=== PATIENT | male | born 1990 | race Caucasian/White ===

== ENCOUNTER 2016-09-07 01:50 | Emergency (ER) | payer SELFPAY ==
[~2016-09-07] VITALS: Ht 175.3 cm; Wt 81.8 kg
[2016-09-07] MEDS ORDERED: OLAN10TA3 PO (02:01)
[2016-09-07 02:34] LABS: BASOPHILS % (AUTO) 0.4 % (0.0-2.0); EOSINOPHILS % (AUTO) 1.9 % (1.0-6.0); HEMATOCRIT 42.6 % (41-53); HEMOGLOBIN 13.9 g/dL (13.5-17.5); LYMPHOCYTES # (AUTO) 1.5 K/uL (1.0-4.8); LYMPHOCYTES % (AUTO) 18.2 % (22.0-44.0); MEAN CORPUSCULAR HEMOGLOBIN 26.9 pg (26.0-34.0); MEAN CORPUSCULAR HGB CONC 32.6 G/dL (31.0-37.0); MEAN CORPUSCULAR VOLUME 83 fL (80-100); MONOCYTES # (AUTO) 0.8 K/uL (0.1-1.0); MONOCYTES % (AUTO) 9.3 % (2.0-9.0); NEUTROPHILS # (AUTO) 5.8 K/uL (1.8-7.7); NEUTROPHILS % (AUTO) 70.2 % (40.0-70.0); PLATELET COUNT (AUTO) 334 K/uL (150-450); RED BLOOD CELL COUNT(AUTO) 5.16 MIL/uL (4.50-5.90); RED CELL DISTRIBUTION WIDTH 14.9 % (11.5-14.5); WHITE BLOOD COUNT (AUTO) 8.2 K/uL (4.5-11.0)
[2016-09-07 02:35] LABS: ANION GAP 10 mmol/L (8-16); CARBON DIOXIDE 27 mmol/L (22-29); CHLORIDE 101 mmol/L (98-107); CREATININE 1.01 mg/dL (0.60-1.30); GLOMERULAR FILTR. RATE CALC > 60 mL/min (>60); POTASSIUM 3.7 mmol/L (3.5-5.1); SODIUM SERUM 138 mmol/L (136-145); UREA NITROGEN, BLOOD 15 mg/dL (7-18)
[2016-09-07 02:41] LABS: ALANINE AMINOTRANSFERASE 46 U/L (12-78); ALBUMIN 4.2 g/dL (3.4-5.0); ASPARTATE AMINOTRANSFERASE 21 U/L (15-37); TOTAL PROTEIN, SERUM 8.2 g/dL (6.4-8.2)
[2016-09-07] MEDS ORDERED: LORazepam 2 MG TABLET PO ONE (03:00)
[2016-09-07] MEDS ORDERED: OLANZapine 5 MG TABLET PO ONE (03:00)
[2016-09-07 03:09] VITALS: BP 132/84
== END 2016-09-07 03:12 | disposition home or self-care (01) ==
LOC: EMS 01:53
DX: F25.9 Schizoaffective disorder, unspecified (principal); F32.9 Major depressive disorder, single episode, unspecified; F15.90 Other stimulant use, unspecified, uncomplicated
CPT/HCPCS: 36415; 80053; 80307; 85025; 99284; G0480

== ENCOUNTER 2017-02-09 09:49 | Emergency (ER) | payer OTHER ==
[~2017-02-09] VITALS: Ht 175.3 cm; Wt 83.0 kg
[~2017-02-09 09:49] MED LIST: OLAN10TA3 PO
[2017-02-09 11:01] VITALS: BP 135/91
== END 2017-02-09 11:02 | disposition home or self-care (01) ==
LOC: EMS 09:49
DX: B35.6 Tinea cruris (principal); R03.0 Elevated blood-pressure reading, without diagnosis of hypertension
CPT/HCPCS: 99283

== ENCOUNTER 2017-02-24 09:40 | Emergency (ER) | payer OTHER ==
[~2017-02-24] VITALS: Ht 175.3 cm; Wt 84.1 kg
[2017-02-24 09:45] VITALS: BP 132/90
[2017-02-24] MEDS ORDERED: NYST30CR9 TP (09:47)
== END 2017-02-24 11:30 | disposition home or self-care (01) ==
LOC: EMS 09:42
DX: Z76.0 Encounter for issue of repeat prescription (principal); F20.9 Schizophrenia, unspecified; F32.9 Major depressive disorder, single episode, unspecified
CPT/HCPCS: 99283

== ENCOUNTER 2018-11-06 12:30 | Emergency (ER) | payer OTHER ==
[~2018-11-06] VITALS: Ht 172.7 cm; Wt 86.4 kg
[~2018-11-06 12:30] MED LIST changes: +NYST30CR9 TP
[2018-11-06] MEDS ORDERED: HYD50 PO (12:43)
[2018-11-06 14:56] VITALS: BP 132/81
== END 2018-11-06 14:57 | disposition home or self-care (01) ==
LOC: EMS 12:30
DX: R76.11 Nonspecific reaction to tuberculin skin test without active tuberculosis (principal); F32.9 Major depressive disorder, single episode, unspecified; F20.9 Schizophrenia, unspecified; F15.90 Other stimulant use, unspecified, uncomplicated

== ENCOUNTER 2019-02-04 08:42 | Emergency (ER) | payer OTHER ==
[~2019-02-04] VITALS: Ht 175.3 cm; Wt 90.9 kg
[~2019-02-04 08:42] MED LIST changes: +HYD50 PO; -NYST30CR9 TP
[2019-02-04 09:47] VITALS: BP 137/85
== END 2019-02-04 09:54 | disposition home or self-care (01) ==
LOC: EMS 08:43
DX: Z11.1 Encounter for screening for respiratory tuberculosis (principal); F15.10 Other stimulant abuse, uncomplicated; F17.210 Nicotine dependence, cigarettes, uncomplicated; Z79.899 Other long term (current) drug therapy; F20.9 Schizophrenia, unspecified; F32.9 Major depressive disorder, single episode, unspecified
CPT/HCPCS: 99406

== ENCOUNTER 2020-06-27 09:17 | Emergency (ER) | payer OTHER ==
[~2020-06-27] VITALS: Ht 175.3 cm; Wt 93.2 kg
[2020-06-27 09:29] VITALS: BP 131/61
[2020-06-27 10:51] LABS: BASOPHILS % (AUTO) 0.5 % (0.0-2.0); EOSINOPHILS % (AUTO) 2.6 % (1.0-6.0); HEMATOCRIT 45.3 % (41-53); LYMPHOCYTES # (AUTO) 1.7 K/uL (1.0-4.8); LYMPHOCYTES % (AUTO) 17.8 % (22.0-44.0); MEAN CORPUSCULAR HEMOGLOBIN 26.8 pg (26.0-34.0); MEAN CORPUSCULAR HGB CONC 33.1 G/dL (31.0-37.0); MEAN CORPUSCULAR VOLUME 81 fL (80-100); MONOCYTES # (AUTO) 0.6 K/uL (0.1-1.0); MONOCYTES % (AUTO) 5.9 % (2.0-9.0); NEUTROPHILS # (AUTO) 6.9 K/uL (1.8-7.7); NEUTROPHILS % (AUTO) 73.2 % (40.0-70.0); PLATELET COUNT (AUTO) 357 K/uL (150-450); RED BLOOD CELL COUNT(AUTO) 5.59 MIL/uL (4.50-5.90)
[2020-06-27 10:54] LABS: APPEARANCE,URINE CLEAR (CLEAR); BILIRUBIN,URINE NEGATIVE (NEGATIVE); GLUCOSE, URINE (UA) NEGATIVE (NEGATIVE); KETONES,URINE NEGATIVE (NEGATIVE); LEUKOCYTE ESTERASE ,URINE NEGATIVE (NEGATIVE); NITRATE,URINE NEGATIVE (NEGATIVE); OCCULT BLOOD,URINE NEGATIVE (NEGATIVE); PROTEIN,URINE NEGATIVE (NEGATIVE)
[2020-06-27 10:57] LABS: ANION GAP 9 mmol/L (8-16); CALCIUM, TOTAL 8.9 mg/dL (8.8-10.5); CARBON DIOXIDE 28 mmol/L (22-29); CHLORIDE 103 mmol/L (98-107); CREATININE 0.79 mg/dL (0.60-1.30); GLOMERULAR FILTR. RATE CALC > 60 mL/min (>60); GLUCOSE,RANDOM 97 mg/dL (70-110); SODIUM SERUM 140 mmol/L (136-145); UREA NITROGEN, BLOOD 8 mg/dL (7-18)
[2020-06-27 10:59] LABS: AMPHET/METH SCREEN,URINE POSITIVE (NEGATIVE); BARBITURATE SCREEN, URINE NEGATIVE (NEGATIVE); BENZODIAZEPINES SCREEN,URINE NEGATIVE (NEGATIVE); CANNABINOID SCREEN,URINE POSITIVE (NEGATIVE); COCAINE SCREEN,URINE NEGATIVE (NEGATIVE); METHADONE SCREEN, URINE NEGATIVE (NEGATIVE); OPIATE SCREEN,URINE NEGATIVE (NEGATIVE)
[2020-06-27 11:03] LABS: ALANINE AMINOTRANSFERASE 35 U/L (12-78); ALBUMIN 3.6 g/dL (3.4-5.0); ALKALINE PHOSPHATASE 102 U/L (46-116); ASPARTATE AMINOTRANSFERASE 17 U/L (15-37); BILIRUBIN,TOTAL 0.5 mg/dL (0.1-1.0); TOTAL PROTEIN, SERUM 7.8 g/dL (6.4-8.2)
[2020-06-27 11:05] LABS: PHENCYCLIDINE SCREEN,URINE NEGATIVE (NEGATIVE)
== END 2020-06-27 12:45 | disposition home or self-care (01) ==
LOC: EMS 09:17
DX: R44.0 Auditory hallucinations (principal); G47.00 Insomnia, unspecified; F19.10 Other psychoactive substance abuse, uncomplicated; F32.9 Major depressive disorder, single episode, unspecified; F17.210 Nicotine dependence, cigarettes, uncomplicated; F12.90 Cannabis use, unspecified, uncomplicated; Z88.6 Allergy status to analgesic agent; Z88.8 Allergy status to other drugs, medicaments and biological substances
CPT/HCPCS: 36415; 80053; 80307; 81003; 85025; 99284; G0480

== ENCOUNTER 2024-11-23 09:54 | Inpatient (IN) | payer MEDICAID, OTHER ==
[~2024-11-23] VITALS: Ht 175.3 cm; Wt 80.7 kg
[~2024-11-23 09:54] MED LIST changes: -HYD50 PO; +HYDR-5256 PO; -OLAN10TA3 PO; +OLAN10TA74 PO
[2024-11-23 10:16] LABS: PLATELET COUNT (AUTO) 293 K/uL (150-450); RED BLOOD CELL COUNT(AUTO) 5.64 MIL/uL (4.50-5.90); RED CELL DISTRIBUTION WIDTH 14.3 % (11.5-14.5); WHITE BLOOD COUNT (AUTO) 9.1 K/uL (4.5-11.0)
[2024-11-23 10:25] LABS: CALCIUM, TOTAL 9.0 mg/dL (8.8-10.5); CREATININE 0.67 mg/dL (0.60-1.30); GLOMERULAR FILTR. RATE CALC > 60 mL/min (>60); GLUCOSE,RANDOM 112 mg/dL (70-110); SODIUM SERUM 139 mmol/L (136-145); UREA NITROGEN, BLOOD 11 mg/dL (7-18)
[2024-11-23 10:29] LABS: COVID AG,FIA SOURCE NPH
[2024-11-23 11:00] LABS: SARS-COV2 (COVID) ANTIGEN,FIA Negative (Negative)
[2024-11-23 12:42] LABS: APPEARANCE,URINE CLEAR (CLEAR); GLUCOSE, URINE (UA) NEGATIVE (NEGATIVE); LEUKOCYTE ESTERASE ,URINE NEGATIVE (NEGATIVE); NITRATE,URINE NEGATIVE (NEGATIVE); OCCULT BLOOD,URINE NEGATIVE (NEGATIVE); PH,URINE DRUG SCREEN 6.5 (5.0-8.0); SPECIFIC GRAVITIY, URINE 1.009 (1.003-1.030)
[2024-11-23 12:47] LABS: ALCOHOL, URINE DRUG SCREEN NEGATIVE (NEGATIVE); AMPHET/METH SCREEN,URINE POSITIVE (NEGATIVE); BARBITURATE SCREEN, URINE NEGATIVE (NEGATIVE); CANNABINOID SCREEN,URINE POSITIVE (NEGATIVE); COCAINE SCREEN,URINE NEGATIVE (NEGATIVE); METHADONE SCREEN, URINE NEGATIVE (NEGATIVE)
[2024-11-23 19:28] VITALS: BP 128/72; PULSE 80; RESP 18; TEMP 98.5; O2SAT 98
[2024-11-24 08:28] VITALS: BP 121/91; PULSE 91; RESP 18; TEMP 97.6; O2SAT 100
[2024-11-24] MEDS ORDERED: NICOTINE POLACRILEX 4 MG LOZENGE PO PRN (09:45)
[2024-11-24] MEDS ORDERED: LOPERAMIDE HCL 2 MG CAPSULE PO PRN (09:45)
[2024-11-24] MEDS ORDERED: MAG HYDROX/ALUMINUM HYD/SIMETH ES 30 ML SUSPENSION UDCUP PO PRN (09:45)
[2024-11-24] MEDS ORDERED: PETROLATUM,WHITE 28 GM JELLY TP PRN (09:45)
[2024-11-24] MEDS ORDERED: BENZOCAINE/MENTHOL [CEPACOL] LOZENGE PO PRN (09:45)
[2024-11-24] MEDS ORDERED: ALBUTEROL SULFATE HFA 90 MCG/PUFF 8 GM INHALER IH PRN (09:45)
[2024-11-24] MEDS ORDERED: OMEPRAZOLE 20 MG CAPSULE PO PRN (09:45)
[2024-11-24] MEDS ORDERED: MAGNESIUM HYDROXIDE SUSPENSION 30 ML UDCUP PO PRN (09:45)
[2024-11-24] MEDS ORDERED: BACITRACIN 28 GM OINTMENT TP PRN (09:45)
[2024-11-24] MEDS ORDERED: ONDANSETRON 4 MG TABLET PO PRN (09:45)
[2024-11-24] MEDS ORDERED: LORazepam 2 MG/ML VIAL ONE (17:04)
[2024-11-24] MEDS ORDERED: FLUT16H NASAL (17:31)
[2024-11-24] MEDS ORDERED: OLAN15TA98 PO (17:31)
[2024-11-24] MEDS ORDERED: FEXO-236 PO (17:31)
[2024-11-24] MEDS: LORazepam 2 MG/ML VIAL IM ONE (17:35)
[2024-11-24 20:05] VITALS: BP 124/80; PULSE 93; RESP 18; TEMP 98; O2SAT 100
[2024-11-25 08:03] VITALS: BP 121/88; PULSE 94; RESP 17; TEMP 97.6; O2SAT 99
[2024-11-25 15:40] VITALS: BP 112/77; PULSE 88; RESP 18; TEMP 97.6; O2SAT 99
[2024-11-25 21:00] VITALS: BP 120/99; PULSE 110; RESP 17; TEMP 97.5; O2SAT 98
[2024-11-25] MEDS: ZOLPIDEM TARTRATE 10 MG TABLET PO PRN (22:47)
[2024-11-26 08:12] VITALS: BP 107/76; PULSE 85; RESP 17; TEMP 97.9; O2SAT 97
[2024-11-26] MEDS ORDERED: LORazepam 2 MG/ML VIAL ONE (13:15)
[2024-11-26] MEDS: LORazepam 2 MG/ML VIAL IM ONE (13:23)
[2024-11-26 21:30] VITALS: RESP 17
[2024-11-27 08:22] VITALS: BP 120/82; PULSE 93; RESP 17; TEMP 97.5; O2SAT 99
[2024-11-27 20:25] VITALS: BP 127/88; PULSE 99; RESP 18; TEMP 97.7; O2SAT 100
[2024-11-28 09:12] VITALS: BP 120/81; PULSE 98; RESP 18; TEMP 97.6; O2SAT 99
[2024-11-28 20:06] VITALS: BP 135/82; PULSE 100; RESP 18; TEMP 97.7; O2SAT 98
[2024-11-29 08:01] VITALS: BP 140/90; PULSE 99; RESP 18; TEMP 97.2; O2SAT 99
[2024-11-29 20:10] VITALS: BP 135/62; PULSE 85; RESP 18; TEMP 98.1; O2SAT 98
[2024-11-30 08:06] VITALS: BP 131/95; PULSE 96; RESP 18; TEMP 97.4; O2SAT 95
[2024-11-30] MEDS: ACETAMINOPHEN 325 MG TABLET PO PRN (16:15)
[2024-11-30 16:16] VITALS: RESP 17
[2024-11-30 17:23] VITALS: RESP 17
[2024-11-30 20:12] VITALS: BP 122/82; PULSE 80; RESP 17; TEMP 96; O2SAT 97
[2024-12-01 08:39] VITALS: BP 118/77; PULSE 77; RESP 17; TEMP 97.6; O2SAT 97
[2024-12-01 15:57] VITALS: BP 125/82; PULSE 83; RESP 18; TEMP 97.8
[2024-12-01] MEDS: IBUPROFEN 600 MG TABLET PO PRN (16:01)
[2024-12-01 17:01] VITALS: RESP 18
[2024-12-01 20:07] VITALS: BP 134/96; PULSE 89; RESP 17; TEMP 97; O2SAT 97
[2024-12-02 08:04] VITALS: BP 123/81; PULSE 77; RESP 16; TEMP 97.5; O2SAT 97
[2024-12-02 20:01] VITALS: BP 154/94; PULSE 100; RESP 18; TEMP 97.9; O2SAT 99
[2024-12-03 08:07] VITALS: BP 112/85; PULSE 94; RESP 17; TEMP 97.4; O2SAT 98
[2024-12-03] MEDS: CARBAMIDE PEROXIDE 6.5% 15 ML OTIC SOLUTION AU SCH (11:32)
[2024-12-03] MEDS: DOCUSATE SODIUM 100 MG CAPSULE PO PRN (12:52)
[2024-12-03 20:05] VITALS: BP 121/87; PULSE 98; RESP 18; TEMP 97.5; O2SAT 100
[2024-12-04] MEDS ORDERED: HYDR-5256 PO (06:00)
[2024-12-04] MEDS ORDERED: OLAN10TA74 PO (06:00)
[2024-12-04 08:08] VITALS: BP 136/91; PULSE 105; RESP 17; TEMP 97.1; O2SAT 97
== END 2024-12-04 11:50 | disposition home or self-care (01) | DRG 750 ==
LOC: EMS 09:54 → B3A 16:14
PROVIDERS: ADMIT Psychiatry & Neurology Psychiatry; ATTEND Psychiatry & Neurology Psychiatry
PROC: GZHZZZZ Group Psychotherapy (ICD-10-PCS; principal; 2024-11-24)
PROC: GZ52ZZZ Individual Psychotherapy, Cognitive (ICD-10-PCS; 2024-11-25)
DX: F25.0 Schizoaffective disorder, bipolar type (principal); F12.10 Cannabis abuse, uncomplicated; F15.10 Other stimulant abuse, uncomplicated; F41.9 Anxiety disorder, unspecified; G47.00 Insomnia, unspecified; K59.00 Constipation, unspecified; R03.0 Elevated blood-pressure reading, without diagnosis of hypertension; Z20.822 Contact with and (suspected) exposure to COVID-19; Z72.0 Tobacco use; Z88.8 Allergy status to other drugs, medicaments and biological substances
CPT/HCPCS: 80048; 80307; 81003; 85025; G0480; J1200; J2060; J3230

== ENCOUNTER 2025-01-25 22:10 | Inpatient (IN) | payer MEDICAID ==
[~2025-01-25] VITALS: Ht 175.3 cm; Wt 82.2 kg
[2025-01-26 01:22] VITALS: BP 123/84; PULSE 91; RESP 17; TEMP 98.7; O2SAT 98
[2025-01-26 08:15] LABS: PLATELET COUNT (AUTO) 314 K/uL (150-450); RED BLOOD CELL COUNT(AUTO) 5.31 MIL/uL (4.50-5.90); RED CELL DISTRIBUTION WIDTH 14.2 % (11.5-14.5); WHITE BLOOD COUNT (AUTO) 7.5 K/uL (4.5-11.0)
[2025-01-26 08:22] VITALS: BP 109/71; PULSE 65; RESP 16; TEMP 98.1; O2SAT 98
[2025-01-26 08:53] LABS: ASPARTATE AMINOTRANSFERASE 18 U/L (15-37); CALCIUM, TOTAL 8.7 mg/dL (8.8-10.5); CHOL/HDL RATIO 2.9 (4.2-7.3); CREATININE 0.53 mg/dL (0.60-1.30); GLOMERULAR FILTR. RATE CALC > 60 mL/min (>60); LDL CHOL (CALC.) 83 mg/dL (0-130); SODIUM SERUM 138 mmol/L (136-145); TOTAL PROTEIN, SERUM 7.0 g/dL (6.4-8.2); UREA NITROGEN, BLOOD 10 mg/dL (7-18)
[2025-01-26 08:59] LABS: GLUCOSE,RANDOM 92 mg/dL (70-110)
[2025-01-26] MEDS ORDERED: PETROLATUM,WHITE 28 GM JELLY TP PRN (18:45)
[2025-01-26] MEDS ORDERED: ONDANSETRON 4 MG TABLET PO PRN (18:45)
[2025-01-26] MEDS ORDERED: MAG HYDROX/ALUMINUM HYD/SIMETH ES 30 ML SUSPENSION UDCUP PO PRN (18:45)
[2025-01-26] MEDS ORDERED: LOPERAMIDE HCL 2 MG CAPSULE PO PRN (18:45)
[2025-01-26] MEDS ORDERED: GuaiFENesin/D-METHORPHAN [SUGAR-FREE] 200-20MG/10 ML SYRUP UDCUP PO PRN (18:45)
[2025-01-26] MEDS ORDERED: DOCUSATE SODIUM 100 MG CAPSULE PO PRN (18:45)
[2025-01-26] MEDS ORDERED: NICOTINE 14 MG/24 HOUR PATCH TD PRN (18:45)
[2025-01-26] MEDS ORDERED: IBUPROFEN 400 MG TABLET PO PRN (18:45)
[2025-01-26] MEDS ORDERED: MAGNESIUM HYDROXIDE SUSPENSION 30 ML UDCUP PO PRN (18:45)
[2025-01-26] MEDS ORDERED: ALBUTEROL SULFATE HFA 90 MCG/PUFF 8 GM INHALER IH PRN (18:45)
[2025-01-27 08:31] LABS: PLATELET COUNT (AUTO) 364 K/uL (150-450); RED BLOOD CELL COUNT(AUTO) 5.69 MIL/uL (4.50-5.90); RED CELL DISTRIBUTION WIDTH 14.1 % (11.5-14.5); WHITE BLOOD COUNT (AUTO) 9.4 K/uL (4.5-11.0)
[2025-01-27 08:55] LABS: ASPARTATE AMINOTRANSFERASE 12 U/L (15-37); CALCIUM, TOTAL 8.8 mg/dL (8.8-10.5); CREATININE 0.58 mg/dL (0.60-1.30); GLOMERULAR FILTR. RATE CALC > 60 mL/min (>60); GLUCOSE,RANDOM 130 mg/dL (70-110); SODIUM SERUM 136 mmol/L (136-145); TOTAL PROTEIN, SERUM 7.6 g/dL (6.4-8.2); UREA NITROGEN, BLOOD 12 mg/dL (7-18)
[2025-01-27 09:04] LABS: APPEARANCE,URINE TURBID (CLEAR); GLUCOSE, URINE (UA) NEGATIVE (NEGATIVE); LEUKOCYTE ESTERASE ,URINE NEGATIVE (NEGATIVE); NITRATE,URINE NEGATIVE (NEGATIVE); OCCULT BLOOD,URINE NEGATIVE (NEGATIVE); PH,URINE DRUG SCREEN 7.0 (5.0-8.0); SPECIFIC GRAVITIY, URINE 1.020 (1.003-1.030)
[2025-01-27 09:35] LABS: ALCOHOL, URINE DRUG SCREEN NEGATIVE (NEGATIVE); AMPHET/METH SCREEN,URINE POSITIVE (NEGATIVE); BARBITURATE SCREEN, URINE NEGATIVE (NEGATIVE); CANNABINOID SCREEN,URINE POSITIVE (NEGATIVE); COCAINE SCREEN,URINE NEGATIVE (NEGATIVE); METHADONE SCREEN, URINE NEGATIVE (NEGATIVE)
[2025-01-27 10:08] LABS: CHOL/HDL RATIO 2.9 (4.2-7.3); LDL CHOL (CALC.) 93.0 mg/dL (0-130)
[2025-01-27 19:38] VITALS: RESP 18
[2025-01-27 20:35] VITALS: BP 123/76; PULSE 90; RESP 17; TEMP 98; O2SAT 99
[2025-01-28 08:42] VITALS: BP 118/82; PULSE 78; RESP 16; TEMP 97; O2SAT 99
[2025-01-28 20:24] VITALS: BP 111/79; PULSE 88; RESP 17; TEMP 97.9; O2SAT 98
[2025-01-29 08:22] VITALS: BP 121/74; PULSE 83; RESP 17; TEMP 98.2; O2SAT 98
[2025-01-29 20:18] VITALS: BP 118/84; PULSE 113; RESP 18; TEMP 100.2; O2SAT 98
[2025-01-29 20:20] VITALS: BP 108/73; PULSE 86; RESP 18; TEMP 96.6; O2SAT 99
[2025-01-29] MEDS: ZOLPIDEM TARTRATE 10 MG TABLET PO PRN (21:18)
[2025-01-30 08:27] VITALS: BP 123/87; PULSE 91; RESP 18; TEMP 98.6; O2SAT 100
[2025-01-30 20:19] VITALS: BP 115/64; PULSE 81; RESP 18; TEMP 97.3; O2SAT 99
[2025-01-31 08:21] VITALS: BP 117/83; PULSE 79; RESP 16; TEMP 98.1; O2SAT 98
[2025-01-31 20:37] VITALS: BP 122/78; PULSE 77; RESP 16; TEMP 98.1; O2SAT 100
[2025-02-01 10:11] VITALS: BP 130/81; PULSE 86; RESP 16; TEMP 98.6; O2SAT 97
[2025-02-01 22:42] VITALS: BP 130/72; PULSE 80; RESP 17; TEMP 98.2; O2SAT 99
[2025-02-02] MEDS: ACETAMINOPHEN 325 MG TABLET PO PRN (04:27)
[2025-02-02 20:29] VITALS: BP 135/89; RESP 16; TEMP 97.3; O2SAT 98
[2025-02-02] MEDS: INFLUENZA VIRUS VACCINE TVS (6MO+) 2025-26/PF 45 MCG/0.5 ML SYRINGE IM. ONE (21:41)
[2025-02-03 08:48] VITALS: BP 131/87; PULSE 93; RESP 16; TEMP 98.3; O2SAT 99
[2025-02-03 22:28] VITALS: BP 130/87; PULSE 90; RESP 17; TEMP 98.6; O2SAT 97
[2025-02-04 08:15] VITALS: BP 136/80; PULSE 66; RESP 16; TEMP 98.4; O2SAT 99
[2025-02-04 20:11] VITALS: BP 123/93; PULSE 98; RESP 18; TEMP 97.4; O2SAT 99
[2025-02-05 08:16] VITALS: BP 137/84; PULSE 99; RESP 17; TEMP 98; O2SAT 97
[2025-02-05 20:29] VITALS: BP 126/63; PULSE 71; RESP 18; TEMP 98.1; O2SAT 98
[2025-02-06 08:20] VITALS: BP 129/81; PULSE 86; RESP 18; TEMP 97.7; O2SAT 98
[2025-02-06] MEDS ORDERED: OLAN10TA74 PO ×2 (13:14)
== END 2025-02-06 15:52 | disposition home or self-care (01) | DRG 761 ==
LOC: B3A 01-26 00:01
PROVIDERS: ADMIT Psychiatry & Neurology Child & Adolescent Psychiatry; ATTEND Psychiatry & Neurology Child & Adolescent Psychiatry
PROC: GZHZZZZ Group Psychotherapy (ICD-10-PCS; principal; 2025-01-26)
PROC: GZ58ZZZ Individual Psychotherapy, Cognitive-Behavioral (ICD-10-PCS; 2025-01-26)
PROC: GZ56ZZZ Individual Psychotherapy, Supportive (ICD-10-PCS; 2025-01-26)
DX: F25.1 Schizoaffective disorder, depressive type (principal); F12.10 Cannabis abuse, uncomplicated; F15.10 Other stimulant abuse, uncomplicated; R41.89 Other symptoms and signs involving cognitive functions and awareness; F41.9 Anxiety disorder, unspecified; R94.6 Abnormal results of thyroid function studies; Z88.8 Allergy status to other drugs, medicaments and biological substances
CPT/HCPCS: 80053; 80061; 80307; 81003; 83036; 84439; 84443; 85025; 90686